=== PATIENT | female | born 1940 | race Caucasian/White ===

== ENCOUNTER 2018-02-22 14:31 | Inpatient (IN) | payer MEDICARE, OTHER ==
[~2018-02-22] VITALS: Ht 157.5 cm; Wt 58.1 kg
--- NOTE | ~2018-02-22 | H ---
[address] [address] HISTORY AND PHYSICAL Name: JOHN MILLER Room: [address] IN M.R.#: [id number] Admission: 02/22/18 Attend Phys: Meera Mckinnon DO Discharge: 02/24/18 Date of : 40 Report #: [id number] THIS REPORT FOR: //name// Please refer to the History and Physical performed in the physician's office. By: 1235Medical Records Staff BETH /ZAIRA
[2018-02-22 14:36] VITALS: BP 181/79
[2018-02-22 14:54] LABS: ABSOLUTE BASOPHILS 0.1 thou/uL (0.0-0.2); ABSOLUTE EOSINOPHILS 0.2 thou/uL (0.0-0.7); ABSOLUTE LYMPHOCYTES 1.6 thou/uL (0.8-5.3); ABSOLUTE MONOCYTES 0.4 thou/uL (0.0-1.2); ABSOLUTE NEUTROPHILS 10.8 thou/uL (1.6-8.1); BASOPHILS 0.7 %; EOSINOPHILS 1.2 %; HEMATOCRIT 46.1 % (37.0-47.0); HEMOGLOBIN 15.6 gm/dL (12.0-15.0); LYMPHOCYTES 12.1 %; MCH 33.5 pg (26.0-34.0); MCHC 33.9 g/dL (28.0-37.0); MCV 98.8 fL (80.0-100.0); MONOCYTES 3.3 %; MPV 7.3 fl. (7.2-11.1); NUCLEATED RBCS 0 /100WBC; PLATELET COUNT* 256 thou/uL (150-400); POLYS 82.7 %; RBC 4.66 mil/uL (4.20-5.00)
[2018-02-22 15:05] LABS: CALCIUM 9.4 mg/dL (8.5-10.1); CREATININE 0.8 mg/dL (0.6-1.3); POTASSIUM 3.9 mmol/L (3.5-5.1)
[2018-02-22 15:07] LABS: URINE BILIRUBIN NEGATIVE (Negative); URINE BLOOD NEGATIVE (Negative); URINE CLARITY CLEAR; URINE COLOR YELLOW; URINE GLUCOSE-RANDOM NEGATIVE (Negative); URINE KETONES NEGATIVE (Negative); URINE LEUKOCYTES-REFLEX NEGATIVE (Negative); URINE NITRITE-REFLEX NEGATIVE (Negative); URINE PROTEIN NEGATIVE (Negative); URINE UROBILINOGEN 0.2 E.U./dl (0.2-1.0)
[2018-02-22 15:09] LABS: ALBUMIN 3.7 g/dL (3.4-5.0); TOTAL BILIRUBIN 0.4 mg/dL (<0.1-1.0); TOTAL PROTEIN 7.7 g/dL (6.4-8.2)
[2018-02-22] MEDS ORDERED: COLACE100 MG PO (19:20)
[2018-02-22] MEDS ORDERED: NORCO 5-325 TA1 EACH PO (19:20)
[2018-02-22] MEDS ORDERED: ZOFRAN ODT4 MG PO (19:20)
[2018-02-22 20:45] VITALS: BP 171/82
[2018-02-22 21:44] VITALS: BP 174/72
[2018-02-23 03:47] LABS: MCH 33.7 pg (26.0-34.0); MCHC 34.1 g/dL (28.0-37.0); MCV 98.8 fL (80.0-100.0); MPV 7.8 fl. (7.2-11.1); RBC 4.15 mil/uL (4.20-5.00); RDW-CV 12.9 % (10.5-14.5); WBC 10.5 thou/uL (4.0-11.0)
[2018-02-23 04:41] LABS: ALBUMIN 2.8 g/dL (3.4-5.0); CALCIUM 8.6 mg/dL (8.5-10.1); CREATININE 0.7 mg/dL (0.6-1.3); MAGNESIUM 1.9 mg/dL (1.8-2.4); POTASSIUM 3.5 mmol/L (3.5-5.1); TOTAL BILIRUBIN 0.6 mg/dL (<0.1-1.0); TOTAL PROTEIN 6.1 g/dL (6.4-8.2)
--- NOTE | 2018-02-23 13:39 | EKG ---
[place] [address] ELECTROCARDIOGRAM REPORT Name: JOHN MILLER Room: [address] ADM IN M.R.#: [id number] Admission: 02/22/18 Attend Phys: Meera Mckinnon DO Discharge: Date of : 40 Report #: [id number] THIS REPORT FOR: //name// [facility] ED Test Date: 2018-02-22 Test Time: 14:53:03 Pat Name: JOHN MILLER Department: Room: [facility] Gender: F Renewable Energy Engineer: SHERRIE : 1940 Requested By: Clarisa Faust Order Number: [id number] MD: Vijay Fernandes Measurements Intervals [place] Rate: 74 P: 66 CT: 172 QRS: -1 QRSD: 75 T: 36 QT: 389 QTc: 432 Interpretive Statements Sinus rhythm Left ventricular hypertrophy, by voltage Baseline wander in lead(s) V4 No previous ECG available for comparison Electronically Signed On 02-23-2018 13:39:11 DISCOTHEQUE DANCER by Vijay Fernandes [email or web address] <ELECTRONICALLY SIGNED> By: Vijay Fernandes MD, [facility] 02/23/18 1339 1453 1453 Vijay Fernandes MD, [facility] /EPI
[2018-02-23 14:23] VITALS: BP 174/72
[2018-02-23 14:25] VITALS: BP 174/72
[2018-02-23 20:10] VITALS: BP 146/53
[2018-02-24] VITALS (9 sets, daily range): BP systolic 89–133; BP diastolic 46–60
[2018-02-24 05:07] LABS: HEMATOCRIT 41.6 % (37.0-47.0); HEMOGLOBIN 14.4 gm/dL (12.0-15.0); MCH 34.4 pg (26.0-34.0); MCHC 34.6 g/dL (28.0-37.0); MCV 99.3 fL (80.0-100.0); MPV 8.1 fl. (7.2-11.1); RBC 4.19 mil/uL (4.20-5.00); RDW-CV 13.2 % (10.5-14.5); WBC 9.9 thou/uL (4.0-11.0)
[2018-02-24 05:21] LABS: CALCIUM 8.7 mg/dL (8.5-10.1); CREATININE 0.8 mg/dL (0.6-1.3); POTASSIUM 4.1 mmol/L (3.5-5.1)
[2018-02-24] MEDS ORDERED: NORCO 5-325 TA1 EACH PO (11:05)
--- NOTE | 2018-02-24 11:18 | OP ---
[address] [address] OPERATIVE REPORT Name: ANGELAJOHN Room: [address] IN M.R.#: [id number] Admission: 02/22/18 Attend Phys: Meera Mckinnon DO Discharge: Date of : 40 Report #: [id number] THIS REPORT FOR: //name// CC: Meera Mckinnon [facility] physician/PCP DATE OF SERVICE: 02/23/2018 PREOPERATIVE DIAGNOSIS: Incarcerated hernia in the right lower quadrant. POSTOPERATIVE DIAGNOSIS: Incisional hernia and a right direct inguinal hernia. FINDINGS: There was a small incisional hernia at the area of a previous open appendectomy. In addition to that, we also discovered a fairly large right direct inguinal hernia. SURGEON: Meera Mckinnon DO. COSURGEON: Conner Arango, PGY-3. BRASS SORTER: None. PROCEDURE PERFORMED: Primary repair of incisional hernia and direct inguinal hernia repair with mesh. ANESTHESIA: General endotracheal and local. ESTIMATED BLOOD LOSS: 5 mL. DRAINS: None. SPECIMENS: Hernia sac. COMPLICATIONS: None. CONDITION: Stable. DISPOSITION: PACU to the floor. HISTORY OF PRESENT ILLNESS: The patient is a very timi 77-year-old female who presented to the ER yesterday with a complaint of increasing pain in the right lower quadrant. She underwent a CT scan, which did identify an incarcerated hernia in the right lower quadrant. The origin of the hernia was somewhat difficult to assess on CT scan, but there was a suggestion that it could be a semi-wound or hernia. She had a history of a fairly large open appendectomy, so was assumed that this was an incisional hernia. The hernia did contain the [address] [address] OPERATIVE REPORT Name: ANISHA MILLERMIE Room: [address] IN M.R.#: [id number] Admission: 02/22/18 Attend Phys: Meera Mckinnon DO Discharge: Date of : 40 Report #: [id number] cecum and a portion of the right colon. We were able to successfully reduce this and she was consented for repair the following day. Risks of surgery were discussed to include bleeding, infection, pain, scar formation, injury to bowel, injury to bladder, recurrence of the hernia, mesh complications and risks of general anesthesia. The patient understood these risks and elected to proceed. DESCRIPTION OF PROCEDURE: The patient was brought to the operating room. She was laid supine on the operating room table. SCDs were placed on bilateral lower extremities. Ancef was given in the perioperative period. General endotracheal anesthesia was induced by anesthesia without difficulty. Abdomen was prepped and draped in standard sterile fashion. Timeout was performed to verify patient and procedure. A 10 mL of 0.5% Marcaine were injected in the area of a prior appendectomy incision. The incision was reopened using a #15 blade. Cautery was used for hemostasis. S retractors were used to visualize the fascia. There was a small area in the external abdominal oblique were a rent could be identified. This area was gently dissected free. As the area was fairly small, the external abdominal oblique opening had to be incised somewhat using cautery. A small hernia sac was then identified. It was gently grasped using two DeBakeys and was circumferentially dissected free. At this point, the hernia sac was opened and finger was gently introduced into the abdomen to assure that there were no ena-incisional adhesions, none were identified. An investigation of the anterior abdominal wall to rule out any other hernia defects then also discovered a fairly large size right-sided direct inguinal hernia. A 1-inch ribbon was introduced through the already open hernia to protect any bowel. A counter incision was then made in the right groin using a #15 blade. Cautery was used for hemostasis. S retractors were used to visualize the fascia. The fascia here was still completely intact. The fascia was elevated between two DeBakeys and was incised. The hernia sac was then directly encountered. It was gently elevated using DeBakeys and was circumferentially cleared from the underlying fascial defect. Occasional guidance was used by palpating the hernia defect from our incisional hernia. Kochers were then placed on the edge of the fascia in this area. This defect was quite large. It measured 2 x 3 cm. A medium yankton mesh was then brought on to the field and was deployed within the defect. The mesh was then sutured into place circumferentially using multiple interrupted stitches of 0 Prolene in a zfypgd-ft-pleyo fashion with excellent approximation of the mesh to the fascia. Care was taken to avoid any underlying structures including bowel and the femoral artery, which could be easily palpated. Fascial edges themselves were then closed in a running fashion using a 0 Prolene. External abdominal oblique was then closed in a running fashion using a 0 Vicryl. An additional 10 mL of 0.5% Marcaine were injected in the fascia. This wound was then closed in a layered fashion using deep and superficial stitches of 3-0 Vicryl in inverted interrupted fashion. Skin wound was closed with a running 4-0 Monocryl and then returned my attention to the small incisional hernia. It was really only about 1 x 1 cm. The edges of the peritoneum were gently elevated and were closed with [address] [place] [address] OPERATIVE REPORT Name: JOHN MILLER Room: [address] IN M.R.#: [id number] Admission: 02/22/18 Attend Phys: Meera Mckinnon DO Discharge: Date of : 40 Report #: [id number] multiple interrupted stitches of 0 Vicryl. The anterior and the posterior fascia were then each closed with interrupted stitches of 0 Prolene. This wound was then also closed in a layered fashion using deep and superficial stitches of 3-0 Vicryl in inverted interrupted fashion. Skin wound was closed with a running 4-0 Monocryl. A total of 30 mL of 0.5% Marcaine were used to anesthetize the wounds. Wounds were then cleansed and covered with Mastisol, Steri-Strips, 4 x 4's, and a Tegaderm. The patient was then allowed to awaken from anesthesia, was extubated and transported to the recovery room with no further difficulties. Counts were correct x 2 at the conclusion of the case. <ELECTRONICALLY SIGNED> By: Meera Mckinnon DO 02/24/18 1118 1921 1943Cmaikol Mckinnon DO /nt
--- NOTE | 2018-02-27 13:06 | PATH ---
[address] [address] PATHOLOGY RPT PROCEDURE Name: ANGELAANISHAJOHN Room: [address] IN M.R.#: [id number] Admission: 02/22/18 Date of : 40 Discharge: 02/24/18 Report #: [id number] Path Case #: [id number] [facility] Accession Number: [id number] . 01 Material submitted: . HERNIA SAC . 01 Clinical history: . Incisional hernia, RLQ pain . 02 Diagnosis: "Hernia sac", herniorrhaphy: - Hernia sac with associated fibrosis and focal mild chronic inflammation. . (SKM:pit 02/26/2018) QTP/02/26/2018 . 02 Electronically signed: . Juan Walker MD, Pathologist NPI- [id number] . 01 Gross description: . The specimen is received in formalin, labeled "Angela, John, hernia sac" and consists of 3 segments of flores-ma membranous tissue with attached yellow adipose tissue measuring 6.0 x 4.0 x 0.6 cm in aggregate. Sectioning reveals no nodules or mass lesions. Telecommunications Administrator sections are submitted in A1. (SDY; 02/25/2018) SYU/SYU . 02 Pathologist provided ICD-10: K43.2 . 02 CPT . 349977 Specimen Comment: A courtesy copy of this report has been sent to Specimen Comment: [phone]. Specimen Comment: Report sent to Performed at: [address], [place], [place] [id number] MD Ravi Adame MD Phone: [phone] Performed at: [address] [facility] [address], [place], [place] [id number] MD Scott Murphy MD Phone: [phone]
== END 2018-02-24 13:14 | disposition home or self-care (01) | DRG 351 ==
LOC: M.ERS 14:31 → M.TBA-ER 19:39 → M.3W 19:39
PROVIDERS: Nurse Practitioner Family; ADMIT Surgery
PROC: 0YU50JZ Supplement Right Inguinal Region with Synthetic Substitute, Open Approach (ICD-10-PCS; principal; 2018-02-23)
PROC: 0WQF0ZZ Repair Abdominal Wall, Open Approach (ICD-10-PCS; principal; 2018-02-23)
DX: K43.2 Incisional hernia without obstruction or gangrene (principal); E44.1 Mild protein-calorie malnutrition; K40.90 Unilateral inguinal hernia, without obstruction or gangrene, not specified as recurrent; I10 Essential (primary) hypertension; D72.829 Elevated white blood cell count, unspecified; Z90.49 Acquired absence of other specified parts of digestive tract; Z68.23 Body mass index [BMI] 23.0-23.9, adult